=== PATIENT | female | born 1985 | race Caucasian/White ===

== ENCOUNTER → 2017-05-08 | Outpatient (CLI) | payer BC ==
[2017-05-10 13:33] LABS: HPV Genotype 16 Not Detected (NOTDET); HPV Genotype 18 Not Detected (NOTDET)
[2017-05-20 15:55] LABS: HPV High Risk Other Not Detected (NOTDET)
== END | disposition home or self-care (01) ==
LOC: LAB 11:12
PROVIDERS: Obstetrics & Gynecology
DX: Z01.419 Encounter for gynecological examination (general) (routine) without abnormal findings (principal)
CPT/HCPCS: 87624; G0123

== ENCOUNTER → 2017-08-05 | Outpatient (CLI) | payer BC ==
[2017-08-05 14:26] LABS: Source, Urine Clean Catch
[2017-08-05 18:26] LABS: Appearance, Urine Clear (Clear); Bilirubin, Urine Neg (Neg); Blood, Urine Neg (Neg); Color, Urine Yellow (P-Yellow); Glucose Qualitative, Urine Neg (Neg); Ketones, Urine Neg (Neg); Leukocyte Esterase, Urine 1+ (Neg); Nitrite, Urine Neg (Neg); Protein, Urine Neg (Neg); Urobilinogen, Urine NORM (Normal)
[2017-08-05 18:57] LABS: Bacteria Few /hpf; Squamous Epithelial Cells Few /hpf (Few); White Blood Cells, Urine 25-50 /hpf (0-5)
== END ==
LOC: LAB 13:44 → LAB SHORT 13:44
PROVIDERS: Obstetrics & Gynecology
DX: R35.0 Frequency of micturition (principal)
CPT/HCPCS: 81001; 87086

== ENCOUNTER → 2019-07-14 | Outpatient (CLI) | payer BC ==
[2019-07-16 15:07] LABS: HPV 16 Negative (Negative); HPV 18 Negative (Negative); HPV OTHER HR TYPES Negative (Negative)
== END | disposition home or self-care (01) ==
PROVIDERS: Obstetrics & Gynecology
DX: Z01.419 Encounter for gynecological examination (general) (routine) without abnormal findings (principal)

== ENCOUNTER 2021-05-27 12:29 | Emergency (ER) | payer BC ==
[~2021-05-27] VITALS: Ht 170.2 cm; Wt 68.0 kg
[2021-05-27] MEDS ORDERED: Roxicodone5 MG PO (14:25)
[2021-05-27] MEDS ORDERED: IBUP600 PO (14:25)
== END 2021-05-27 15:12 | disposition home or self-care (01) ==
LOC: ER 12:29
DX: S52.612A Displaced fracture of left ulna styloid process, initial encounter for closed fracture (principal); S52.502A Unspecified fracture of the lower end of left radius, initial encounter for closed fracture; W01.10XA Fall on same level from slipping, tripping and stumbling with subsequent striking against unspecified object, initial encounter
CPT/HCPCS: 36415; 73100; A9270; J1170; J1885; J2704; J3010; J7030

== ENCOUNTER 2021-06-05 13:30 | Day surgery (SDC) | payer BC ==
[~2021-06-05] VITALS: Ht 170.2 cm; Wt 68.4 kg
[~2021-06-05 13:30] MED LIST: IBUP600 PO; Roxicodone5 MG PO
== END 2021-06-05 22:55 | disposition home or self-care (01) ==
LOC: ORSCMMR 13:30
PROVIDERS: Orthopaedic Surgery
PROC: 0PSJ04Z Reposition Left Radius with Internal Fixation Device, Open Approach (ICD-10-PCS; principal; 2021-06-05 15:30)
DX: S52.552A Other extraarticular fracture of lower end of left radius, initial encounter for closed fracture (principal); V00.118A Other in-line roller-skate accident, initial encounter; Z87.891 Personal history of nicotine dependence
CPT/HCPCS: A9270; C1713; J0171; J0690; J1100; J1170; J1885; J2270; J2405; J2704; J3010; J7120

== ENCOUNTER → 2022-01-24 | Outpatient (CLI) | payer BC | DX: Z01.419 Encounter for gynecological examination (general) (routine) without abnormal findings (principal) ==

== ENCOUNTER → 2023-01-29 | Outpatient (CLI) | payer OTHER ==
[2023-02-06 09:41] LABS: HPV GENOTYPE 16 Not Detected; HPV GENOTYPE 18 Not Detected; HPV HIGH RISK Not Detected; HPV SOURCE Cervical
== END ==
LOC: LAB SHORT 13:37 → LAB 13:37
PROVIDERS: Obstetrics & Gynecology
DX: Z01.419 Encounter for gynecological examination (general) (routine) without abnormal findings (principal)
CPT/HCPCS: 87624; G0123

== ENCOUNTER 2024-05-28 08:39 | Day surgery (SDC) | payer OTHER ==
[~2024-05-28] VITALS: Ht 170.2 cm; Wt 65.7 kg
[~2024-05-28 08:39] MED LIST changes: +Bupivacaine 0.5% W/EPI 1:200000 SDV 30 ML Vial ONE; +Lactated Ringer's 1,000 ML IV ONE; +propofoL 100 ML IV ONE
[2024-05-28] MEDS ORDERED: Acetaminophen 500 MG Tab ONE (08:45)
[2024-05-28] MEDS ORDERED: Metoclopramide HCl 5MG / ML 2ML Vial ONE (09:09)
[2024-05-28] MEDS ORDERED: Dexamethasone Sod Phos 10 MG/ML 1ML VIAL ONE (09:09)
[2024-05-28] MEDS ORDERED: Ondansetron HCl 2 MG / ML 2ML Vial ONE (09:09)
[2024-05-28] MEDS ORDERED: Rocuronium Bromide 10 MG/ML 5ML Injection IV ONE (09:09)
[2024-05-28] MEDS ORDERED: DiphenhydrAMINE HCl 50 MG/ML 1ML Vial ONE (09:10)
[2024-05-28] MEDS ORDERED: Ketorolac Tromethamine 30mg Vial ONE (09:10)
[2024-05-28] MEDS ORDERED: FentaNYL Citrate 50 MCG/ML 2 ML Injection ONE (09:10)
[2024-05-28] MEDS ORDERED: Sugammadex Sodium 200 MG/2ML SDV (100 MG/ML) ONE (09:10)
[2024-05-28] MEDS ORDERED: Lactated Ringer's 1,000 ML IV ONE (09:31)
[2024-05-28 11:05] VITALS: BP 129/95
--- NOTE | 2024-05-28 11:17 | NUR ---
05/28/24 1117 Dolly Diamond PT SITTING UP IN RECLINER, DRINKING PO FLUIDS W/O DIFFICULTY AND SPEAKING WITH . PT ON PULSE OX AND B/P MONITOR. PT HAVING 4/10 PAIN IN ABD AND STATED IT WAS TOELRABLE. PT STATED HER THROAT FELT SCRATCHY 2/10 PAIN THAT WAS TOLERABLE. RN.JORDYN GOING OVER D/C INSTUCTIONS WITH PT AND PT .
== END 2024-05-28 11:38 | disposition home or self-care (01) ==
LOC: ORSCSDS 08:39
PROVIDERS: Obstetrics & Gynecology
PROC: 0U5F4ZZ Destruction of Cul-de-sac, Percutaneous Endoscopic Approach (ICD-10-PCS; principal; 2024-05-28 10:00)
DX: N80.329 Endometriosis of the posterior cul-de-sac, unspecified depth (principal); Z87.891 Personal history of nicotine dependence
CPT/HCPCS: 88305; A9270; J1100; J1200; J1885; J2405; J2704; J2765; J3010; J7120

== ENCOUNTER → 2024-07-05 | Outpatient (CLI) | payer OTHER ==
[~2024-07-05] MED LIST changes: -Bupivacaine 0.5% W/EPI 1:200000 SDV 30 ML Vial ONE; -Lactated Ringer's 1,000 ML IV ONE; -propofoL 100 ML IV ONE
== END ==
LOC: LAB SHORT 10:39 → LAB 10:39
DX: R30.0 Dysuria (principal)
CPT/HCPCS: 87077; 87086; 87186

== ENCOUNTER → 2024-09-23 | Outpatient (CLI) | payer OTHER ==
[2024-09-23 17:08] LABS: Bacterial Vaginosis PCR Negative (NEGATIVE); Candida Group, PCR DETECTED (NOT DETECT); Candida glabrata-krusei, PCR NOT DETECTED (NOT DETECT)
== END | disposition home or self-care (01) ==
LOC: LAB 13:41 → LAB SHORT 13:41
PROVIDERS: Obstetrics & Gynecology
DX: N76.0 Acute vaginitis (principal)
CPT/HCPCS: 81515

== ENCOUNTER 2024-10-19 10:15 | Day surgery (SDC) | payer OTHER ==
[~2024-10-19] VITALS: Ht 170.2 cm; Wt 64.8 kg
[2024-10-19] MEDS ORDERED: Midazolam HCL 1 MG/ML 5MLVIAL ONE (11:18)
[2024-10-19 12:10] VITALS: BP 107/61
== END 2024-10-19 12:13 | disposition home or self-care (01) ==
LOC: ORSCSDS 10:15
PROVIDERS: Internal Medicine Gastroenterology
PROC: 0DJD8ZZ Inspection of Lower Intestinal Tract, Via Natural or Artificial Opening Endoscopic (ICD-10-PCS; principal; 2024-10-19 11:45)
DX: K62.89 Other specified diseases of anus and rectum (principal); K58.9 Irritable bowel syndrome, unspecified; I10 Essential (primary) hypertension; Z87.891 Personal history of nicotine dependence
CPT/HCPCS: J2250; J2704; J7120